=== PATIENT | female | born 1965 | race Two or more races ===

== ENCOUNTER 2022-10-10 00:43 | Emergency (ER) | payer BC ==
[2022-10-10] MEDS ORDERED: Sulfamethoxazole/Trimethoprim 800-160 MG Tab PO ONE (00:44)
[2022-10-10 01:03] LABS: BASOPHILS ABSOLUTE AUTO 0.1 x10-3/uL (0.0-0.1); BASOPHILS PERCENT AUTO 0.5 % (0.2-1.5); EOSINOPHILS ABSOLUTE AUTO 0.2 x10-3/uL (0.0-0.8); EOSINOPHILS PERCENT AUTO 1.9 % (0.6-8.1); HEMATOCRIT 37.7 % (34.2-48.2); HEMOGLOBIN 12.4 g/dL (11.4-15.5); LYMPHOCYTES ABSOLUTE AUTO 2.3 x10-3/uL (1.0-4.4); LYMPHOCYTES PERCENT AUTO 19.8 % (18.4-52.1); MEAN CORPUSCULAR HEMOGLOBIN 25.8 pg (23.9-33.9); MEAN CORPUSCULAR VOLUME 78.3 fL (76.7-100.5); MEAN PLATELET VOLUME 7.4 fL (7.1-12.4); MONOCYTES ABSOLUTE AUTO 0.5 x10-3/uL (0.3-1.0); MONOCYTES PERCENT AUTO 4.4 % (4.4-15.7); NEUTROPHILS ABSOLUTE AUTO 8.6 x10-3/uL (1.5-6.3); NEUTROPHILS PERCENT AUTO 73.4 % (30.8-76.2); PLATELET COUNT,PLT 349 x10(3)uL (151-488); RED BLOOD CELL COUNT 4.81 x10(6)uL (3.60-5.20); RED CELL DISTRIBUTION WIDTH 14.8 % (12.3-16.5); WHITE BLOOD CELL COUNT,WBC 11.8 x10-3/uL (3.0-10.3)
[2022-10-10 01:10] LABS: BLOOD UREA NITROGEN,BUN 14 mg/dL (7-18); BUN/CREATININE RATIO 12.7 (9-20); CALCIUM 9.9 mg/dL (8.6-10.2); CARBON DIOXIDE,CO2 28 mmol/L (21-32); CHLORIDE,CL 100 mmol/L (100-110); CREATININE 1.1 mg/dL (0.55-1.02); EST CRCL DRUG DOSING (CG) 50.77 mL/min; ESTIMATED GFR 59 mL/min (>60); GLUCOSE RANDOM 191 mg/dL (80-116); POTASSIUM,K 3.7 mmol/L (3.5-5.3); SODIUM,NA 139 mmol/L (135-145)
[2022-10-10 01:16] LABS: A/G RATIO 0.8; ALANINE AMINOTRANSFERASE,ALT 27 U/L (12-36); ALBUMIN 3.7 g/dL (3.5-5.2); ALKALINE PHOSPHATASE 125 IU/L (56-112); ASPARTATE AMNIOTRANSFERASE,AST 28 IU/L (5-25); BILIRUBIN TOTAL 0.3 mg/dL (0.1-1.3); PROTEIN TOTAL,TP 8.6 g/dL (6.0-8.0)
[2022-10-10 01:24] LABS: TROPONIN I 8.2 pg/mL (4.0-60.3)
[2022-10-10 01:29] LABS: ETHANOL BLOOD MEDICAL < 0.03 % (<0.03)
[2022-10-10 02:29] LABS: BILIRUBIN,URINE NEGATIVE (NEGATIVE); GLUCOSE,URINE NORMAL (NORMAL); KETONES,URINE NEGATIVE (NEGATIVE); LEUKOCYTE ESTERASE,URINE MODERATE (NEGATIVE); NITRITE,URINE POSITIVE (NEGATIVE); OCCULT BLOOD,URINE NEGATIVE (NEGATIVE); PROTEIN,URINE NEGATIVE (NEGATIVE); UROBILINOGEN,URINE NORMAL (NEGATIVE)
[2022-10-10 02:33] LABS: APPEARANCE,URINE SLIGHTLY CLOUDY (CLEAR); BACTERIA,URINE MODERATE (NS); COLOR,URINE YELLOW (YELLOW); RBC,URINE 0-5 (0-5); SQUAMOUS EPITHELIAL CELLS,UR FEW (NS,R,O); WBC,URINE 20-30 (0-5)
[2022-10-10 02:58] LABS: AMPHETAMINES SCREEN, URINE NEGATIVE (NEGATIVE); BARBITURATE SCREEN,URINE NEGATIVE (NEGATIVE); BENZODIAZEPINES SCREEN,URINE NEGATIVE (NEGATIVE); BUPRENORPHINE SCREEN,URINE NEGATIVE (NEGATIVE); METHADONE SCREEN, URINE NEGATIVE (NEGATIVE); METHAMPHETAMINE SCREEN, URINE NEGATIVE (NEGATIVE); OXYCODONE SCREEN,URINE NEGATIVE (NEGATIVE); PROPOXYPHENE SCREEN,URINE NEGATIVE (NEGATIVE); THC SCREEN,URINE NEGATIVE (NEGATIVE)
== END 2022-10-10 02:52 | disposition home or self-care (01) ==
LOC: FB.ED 00:43
DX: F03.90 Unspecified dementia, unspecified severity, without behavioral disturbance, psychotic disturbance, mood disturbance, and anxiety (principal); Z88.0 Allergy status to penicillin; Z91.013 Allergy to seafood; Z91.041 Radiographic dye allergy status
CPT/HCPCS: 36415; 70450; 71045; 80053; 80307; 81001; 84439; 84443; 84484; 85025; 87086; 87088; 87186; 99285; A9270